=== PATIENT | female | born 2005 | race Caucasian/White ===

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

== ENCOUNTER 2023-05-12 18:00 | Inpatient (IN) | payer OTHER ==
[2023-05-13] MEDS ORDERED: fentaNYL 50 mcg/mL 1 mL Vial SLOW IVP PRN ×2 (02:35→21:31)
[2023-05-13] MEDS ORDERED: HYDROcodone/Acetaminophen 5/325 mg Tablet PO PRN (02:35)
[2023-05-13] MEDS ORDERED: Promethazine HCl 25 MG/ML VIAL IM PRN ×3 (02:35→21:31)
[2023-05-13] MEDS ORDERED: Acetaminophen 500 MG TAB PO PRN (02:35)
[2023-05-13] MEDS ORDERED: Ibuprofen 800 MG TAB PO PRN (02:35)
[2023-05-13] MEDS ORDERED: Diphenoxylate HCl/Atropine Tablet PO PRN (02:35)
[2023-05-13] MEDS ORDERED: Misoprostol 200 MCG TAB PR PRN (02:35)
[2023-05-13] MEDS ORDERED: Carboprost 250 MCG/ML AMP IM PRN (02:35)
[2023-05-13] MEDS ORDERED: Lidocaine 1% (PF) 30 ML VIAL SC PRN (02:35)
[2023-05-13] MEDS ORDERED: Methylergonovine 0.2 MG/ML VIAL IM PRN (02:35)
[2023-05-13] MEDS ORDERED: Oxytocin 30 units/NS 500 ML 500 ML IV SCH ×3 (02:35)
[2023-05-13] MEDS ORDERED: hydrALAZINE 20 MG/ML VIAL SLOW IVP PRN (02:35)
[2023-05-13] MEDS ORDERED: Ondansetron PF 4 MG/2 ML Vial IVP PRN ×4 (02:35→21:31)
[2023-05-13] MEDS ORDERED: Tranexamic Acid 1,000 MG/10 ML VIAL IVP PRN (02:35)
[2023-05-13] MEDS: Lactated Ringer's 1,000 ML IV SCH ×2 (02:40→08:45)
[2023-05-13 03:12] LABS: Hematocrit 41.6 % (34.9-44.5); Hemoglobin 14.4 g/dL (12.0-15.5); Mean Corpuscular HGB CONC 34.6 g/dL (32.0-36.0); Mean Corpuscular Hemoglobin 31.4 pg (27.0-33.0); Mean Corpuscular Volume 90.6 fl (81.6-98.3); Mean Platelet Volume 10.5 fl (7.4-10.4); Platelet Count 223 10x3/uL (150-450); RBC Distribution Width 13.1 % (11.5-14.5); Red Blood Cell (RBC) Count 4.59 10x6/uL (3.90-5.03); White Blood Cell (WBC) Count 11.3 10x3/uL (3.5-10.5)
[2023-05-13 03:22] LABS: Glucose 71 mg/dL (70-105)
[2023-05-13] MEDS: Misoprostol 100 MCG TAB VAG SCH ×3 (03:39→19:40)
[2023-05-13 03:48] LABS: Syphilis Antibody Nonreactive (Nonreactive); Syphilis Antibody Index 0.04 S/CO (<1.00 Non-Reactive)
[2023-05-13 04:22] VITALS: BMI 30.4
[2023-05-13 06:28] LABS: HBSAg Index 2.36 S/CO (0-0.99)
[2023-05-13 06:31] LABS: Hep B Surf Ag - L&D Reflx Confirmation S/CO (NonReactive)
[2023-05-13] MEDS ORDERED: Bupivacaine 0.25% HCL 30 ML VIAL ONE (08:00)
[2023-05-13] MEDS ORDERED: fentaNYL/Ropivacaine Epidural 100 ML ONE (09:03)
[2023-05-13] MEDS: fentaNYL 2 mcg/Ropivacaine 0.2% Epidural 100 ML CADD EPIDURAL SCH ×2 (09:30→17:34)
[2023-05-13] MEDS ORDERED: Moisturizing Cream (Eucerin) 113 GM JAR TOP PRN ×2 (09:48→21:31)
[2023-05-13] MEDS ORDERED: ePHEDrine Sulfate 50 MG/10 ML VIAL SLOW IVP PRN (09:48)
[2023-05-13] MEDS ORDERED: Naloxone HCl 0.4 mg/ml Vial IVP PRN ×4 (09:48→21:31)
[2023-05-13] MEDS ORDERED: Acetaminophen 325 MG TAB PO PRN (09:48)
[2023-05-13] MEDS ORDERED: diphenhydrAMINE 50 MG/ML VIAL IVP PRN ×2 (09:48→21:31)
[2023-05-13] MEDS ORDERED: Lactated Ringer's 500 ML IV PRN (09:48)
[2023-05-13] MEDS ORDERED: Communication Order-Pharmacy FS SCH ×2 (10:00→21:45)
[2023-05-13] MEDS ORDERED: CEFAZOLIN 2 GM VIAL ONE (20:40)
[2023-05-13] MEDS ORDERED: Azithromycin 500 MG VIAL ONE (20:41)
[2023-05-13] MEDS ORDERED: fentaNYL 50 mcg/mL 1 mL Vial ONE ×2 (21:06→23:21)
[2023-05-13] MEDS ORDERED: Bicitra 30 ML UDCUP PO PRN (21:11)
[2023-05-13] MEDS ORDERED: Famotidine/PF 20 mg/2ml Vial SLOW IVP PRN (21:11)
[2023-05-13] MEDS ORDERED: CEFAZOLIN 2 GM in Sodium Chloride 0.9% 100 ML IVPB SCH (21:15)
[2023-05-13] MEDS ORDERED: Azithromycin 500 MG in Sodium Chloride 0.9% 250 ML 250 ML IVPB SCH (21:15)
[2023-05-13] MEDS ORDERED: Oxytocin 10 UNITS/ML VIAL ONE ×2 (21:17→22:06)
[2023-05-13] MEDS ORDERED: Naloxone HCl 0.4 mg/ml Vial IV PRN (21:31)
[2023-05-13] MEDS ORDERED: Meperidine HCl/PF 25 MG/ML VIAL SLOW IVP PRN (21:31)
[2023-05-13] MEDS ORDERED: Ketorolac Tromethamine 30 MG/ML VIAL IVP PRN (21:31)
[2023-05-13] MEDS ORDERED: Promethazine HCl 25 MG SUPP PR PRN (21:31)
[2023-05-13] MEDS ORDERED: HYDROmorphone 0.5 MG/0.5 ML SYRINGE SLOW IVP PRN (21:31)
[2023-05-13] MEDS ORDERED: Morphine PF 10 MG/10 ML VIAL ONE (21:44)
[2023-05-13] MEDS ORDERED: Ketorolac Tromethamine 30 MG/ML VIAL IVP SCH (21:45)
[2023-05-13] MEDS ORDERED: PROPOFOL 20 ML ONE (21:51)
[2023-05-13] MEDS ORDERED: Dexamethasone 4 mg/ml Vial ONE (22:19)
[2023-05-13] MEDS ORDERED: Ondansetron PF 4 MG/2 ML Vial ONE (22:19)
[2023-05-13] MEDS ORDERED: PHENYLEPHRINE-NS 100 MCG/ML 10 ML SYRINGE ONE (22:23)
[2023-05-13 22:26] LABS: RapidComm Collect By CBN; pH (Cord, venous) 7.301 (7.250-7.350)
[2023-05-13 22:29] LABS: RapidComm Collect By CBN
[2023-05-13] MEDS ORDERED: metroNIDAZOLE 500 MG in Premix Bag 1 BAG IVPB SCH (23:00)
[2023-05-14] MEDS ORDERED: diphenhydrAMINE 25 MG CAP PO PRN (01:04)
[2023-05-14] MEDS ORDERED: Bisacodyl 10 MG SUPP PR PRN (01:04)
[2023-05-14] MEDS ORDERED: Ondansetron PF 4 MG/2 ML Vial IVP PRN (01:04)
[2023-05-14] MEDS ORDERED: Boostrix 0.5 ML (Tdap) VIAL (>/=7 yrs of age) IM ONE (01:04)
[2023-05-14] MEDS ORDERED: Promethazine HCl 25 MG/ML VIAL IM PRN (01:04)
[2023-05-14] MEDS ORDERED: Simethicone Chewable 80 MG TAB PO PRN (01:04)
[2023-05-14] MEDS ORDERED: hydrALAZINE 20 MG/ML VIAL SLOW IVP PRN (01:04)
[2023-05-14] MEDS: Ketorolac Tromethamine 30 MG/ML VIAL IVP SCH ×3 (04:08→20:13)
[2023-05-14] MEDS: Lactated Ringer's 1,000 ML IV SCH ×2 (04:08)
[2023-05-14 04:10] LABS: Hemoglobin 13.6 g/dL (12.0-15.5); Mean Corpuscular Hemoglobin 31.4 pg (27.0-33.0); Mean Corpuscular Volume 92.4 fl (81.6-98.3); Mean Platelet Volume 11.1 fl (7.4-10.4); Platelet Count 220 10x3/uL (150-450); RBC Distribution Width 12.9 % (11.5-14.5); Red Blood Cell (RBC) Count 4.33 10x6/uL (3.90-5.03); White Blood Cell (WBC) Count 28.3 10x3/uL (3.5-10.5)
[2023-05-14] MEDS ORDERED: metroNIDAZOLE 500 MG in Premix Bag 1 BAG IVPB SCH (06:00)
[2023-05-14 06:13] LABS: Hep B Surface AG-Rflx Sendout Negative (Negative)
[2023-05-14] MEDS: CEFAZOLIN 2 GM in Sodium Chloride 0.9% 100 ML IVPB SCH ×3 (06:17→21:48)
[2023-05-14] MEDS: Prenatal Vitamin 1 TAB PO SCH (07:54)
[2023-05-14] MEDS: Ferrous Sulfate 325 MG TAB PO SCH ×2 (07:55→23:12)
[2023-05-14] MEDS: Docusate 100 MG CAP PO SCH ×2 (07:55→20:35)
[2023-05-14] MEDS ORDERED: Meperidine HCl/PF 25 MG/ML VIAL IM PRN (09:45)
[2023-05-14] MEDS: metroNIDAZOLE 500 MG in Premix Bag 1 BAG IVPB SCH ×2 (12:06→20:34)
[2023-05-14] MEDS: HYDROcodone/Acetaminophen 5/325 mg Tablet PO PRN ×2 (18:09→23:11)
[2023-05-14] MEDS: Ibuprofen 800 MG TAB PO SCH (20:34)
[2023-05-15] MEDS: metroNIDAZOLE 500 MG in Premix Bag 1 BAG IVPB SCH ×3 (04:56→21:41)
[2023-05-15] MEDS: Ibuprofen 800 MG TAB PO SCH ×3 (05:08→21:41)
[2023-05-15] MEDS: HYDROcodone/Acetaminophen 5/325 mg Tablet PO PRN ×3 (05:09→17:27)
[2023-05-15] MEDS: CEFAZOLIN 2 GM in Sodium Chloride 0.9% 100 ML IVPB SCH ×2 (06:10→13:39)
[2023-05-15] MEDS: Prenatal Vitamin 1 TAB PO SCH (08:25)
[2023-05-15] MEDS: Docusate 100 MG CAP PO SCH ×2 (08:25→21:41)
[2023-05-15] MEDS: Ferrous Sulfate 325 MG TAB PO SCH (11:03)
[2023-05-16] MEDS: Ferrous Sulfate 325 MG TAB PO SCH ×2 (02:09→11:48)
[2023-05-16] MEDS: CEFAZOLIN 2 GM in Sodium Chloride 0.9% 100 ML IVPB SCH ×2 (02:09→11:04)
[2023-05-16] MEDS: HYDROcodone/Acetaminophen 5/325 mg Tablet PO PRN ×3 (05:32→15:36)
[2023-05-16] MEDS: Ibuprofen 800 MG TAB PO SCH ×2 (05:33→15:36)
[2023-05-16 07:47] VITALS: BP 132/81; TEMP 97.4
[2023-05-16] MEDS: metroNIDAZOLE 500 MG in Premix Bag 1 BAG IVPB SCH (11:04)
[2023-05-16] MEDS: Docusate 100 MG CAP PO SCH (11:26)
[2023-05-16] MEDS: Prenatal Vitamin 1 TAB PO SCH (11:26)
== END 2023-05-16 18:00 | disposition home or self-care (01) | DRG 788 ==
LOC: CSHLD 05-13 02:30 → CSHPED 05-14 01:30
PROVIDERS: ADMIT Family Medicine; ATTEND Family Medicine
PROC: 10D00Z1 Extraction of Products of Conception, Low, Open Approach (ICD-10-PCS; principal; 2023-05-13)
PROC: 3E0P7VZ Introduction of Hormone into Female Reproductive, Via Natural or Artificial Opening (ICD-10-PCS; 2023-05-13)
PROC: 10907ZC Drainage of Amniotic Fluid, Therapeutic from Products of Conception, Via Natural or Artificial Opening (ICD-10-PCS; 2023-05-13)
DX: O24.420 Gestational diabetes mellitus in childbirth, diet controlled (principal); Z3A.39 39 weeks gestation of pregnancy; Z37.0 Single live birth; O76 Abnormality in fetal heart rate and rhythm complicating labor and delivery
CPT/HCPCS: 36415; 36416; 51702; 82805; 82947; 85027; 86780; 86850; 86900; 86901; 87340; 88307; J1100; J1200; J1885; J2274; J2405; J2590; J2704; J3010; J3490; J7120; S0020